=== PATIENT | male | born 1980 | race Caucasian/White ===

== ENCOUNTER 2019-08-29 16:22 | Emergency (ER) | payer OTHER ==
[2019-08-29 16:30] VITALS: BP 118/79; PULSE 85; TEMP 98.6; BMI 29.0
--- NOTE | 2019-08-29 17:10 | PDOC ---
History of Present Illness - General Chief Complaint: Injury Stated Complaint: LT HAND INJURY Time Seen by Provider: 08/29/19 16:29 - History of Present Illness Initial Comments: 08/29/19 17:08 39-year-old male without comorbidities current on tetanus presents for evaluation of a laceration on his left hand which occurred while using a knife at home. Past History - Past Medical History Allergies/Adverse Reactions: Allergies Allergy/AdvReac Type Severity Reaction Status Date / Time aspirin Allergy Verified 08/29/19 16:27 COPD: No - Immunization History Immunization Up to Date: No - Psycho Social/Smoking Cessation Hx Smoking History: Never smoked Have you smoked in the past 12 months: No Information on smoking cessation initiated: No Hx Alcohol Use: No Drug/Substance Use Hx: No Review of Systems - Review of Systems Musculoskeletal: Yes: See HPI *Physical Exam - Vital Signs Last Vital Signs Temp Pulse Resp BP Pulse Ox 98.6 F 85 18 118/79 99 08/29/19 16:28 08/29/19 16:28 08/29/19 16:28 08/29/19 16:28 08/29/19 16:28 - Physical Exam 08/29/19 17:08 There is a 1 cm laceration on the radial aspect of the second MTPJ without exposed tendon. There is subcutaneous fat exposed no gross sensorimotor deficits neurovascular intact Medical Decision Making - Medical Decision Making 08/29/19 17:08 The wound was anesthetized with 1% lidocaine without epinephrine. Explored to its base in a bloodless field without any identification of foreign body. Copiously irrigated with normal saline. Edges approximated using 4 3-0 nylon sutures . Dry sterile dressing was placed. Discharge - Discharge Information Problems reviewed: Yes Clinical Impression/Diagnosis: Laceration Condition: Stable Disposition: HOME - Admission No - Follow up/Referral Referrals: Franco Zhou MD [Primary Care Provider] - Anuel Bloom MD [Staff Physician] - - Patient Discharge Instructions Additional Instructions: Please keep the dressing on for the next 48 hours. After 48 hours you may remove the dressing wash the area with soap and water and leave it open to air. If you must work please cover the area with a dry sterile dressing such as a large Band-Aid. Keep the area open to air as much as possible. Return to the emergency room for any worsening symptoms or concern for infection such as redness, swelling, increasing pain, or drainage. Other than that sutures out in 10 days Tylenol and Motrin as directed for pain. Without fail follow-up with hand surgery 2 to 3 days for further evaluation and treatment options - Post Discharge Activity
== END 2019-08-29 17:15 | disposition home or self-care (01) ==
LOC: JERFT 16:22
PROC: 0JQK0ZZ Repair Left Hand Subcutaneous Tissue and Fascia, Open Approach (ICD-10-PCS; principal; 2019-08-29)
DX: S61.412A Laceration without foreign body of left hand, initial encounter (principal); W26.0XXA Contact with knife, initial encounter; Y93.G9 Activity, other involving cooking and grilling; Y92.030 Kitchen in apartment as the place of occurrence of the external cause; Y99.8 Other external cause status; Z88.6 Allergy status to analgesic agent
CPT/HCPCS: 12001-25; 99281-25

== ENCOUNTER 2019-09-07 18:05 | Emergency (ER) | payer OTHER ==
[2019-09-07 18:12] VITALS: BP 115/66; PULSE 80; TEMP 98; BMI 26.3
--- NOTE | 2019-09-07 18:17 | PDOC ---
Suture Removal/Wound Check HPI - History of Present Illness Chief Complaint: Suture/Staple Removal(Here) Stated Complaint: STITCHES REMOVAL Time Seen by Provider: 09/07/19 18:09 History Source: Yes: Patient Exam Limitations: Yes: No Limitations Treated at: [facility] Date of Last ED visit: 08/29/19 - Previous ED Treatment Type of procedure performed on last visit: Yes: Laceration Repair Tetanus Immunization: Yes: Up to Date Antibiotics Prescribed: No Past History - Travel Traveled outside of the country in the last 30 days: No Close contact w/someone who was outside of country & ill: No - Past Medical History Allergies/Adverse Reactions: Allergies Allergy/AdvReac Type Severity Reaction Status Date / Time aspirin Allergy Verified 09/07/19 18:10 Home Medications: Ambulatory Orders NK [No Known Home Medication] 08/29/19 COPD: No - Immunization History Immunization Up to Date: No - Psycho Social/Smoking Cessation Hx Smoking History: Never smoked Have you smoked in the past 12 months: No Hx Alcohol Use: No Drug/Substance Use Hx: No Suture Removal/Wound Check PE - Physical Exam Laceration/Wound Check Symptoms: denies: Pain, Fever, Redness, Discharge Current Severity Level: None *Review of Systems - Review of Systems Able to Perform ROS?: Yes Constitutional: No: Chills, Fever Integumentary: No: Symptoms Reported *Physical Exam - Vital Signs Last Vital Signs Temp Pulse Resp BP Pulse Ox 98.0 F 80 18 115/66 100 09/07/19 18:10 09/07/19 18:10 09/07/19 18:10 09/07/19 18:10 09/07/19 18:10 Medical Decision Making - Medical Decision Making 09/07/19 18:16 4 sutures removed Abx ointment and dressing applied Discharge - Discharge Information Problems reviewed: Yes Clinical Impression/Diagnosis: Visit for suture removal - Admission No - Follow up/Referral - Patient Discharge Instructions Patient Printed Discharge Instructions: DI for Suture Removal Additional Instructions: Keep clean and dry Remove here for any new or concerning symptoms - Post Discharge Activity
== END 2019-09-07 18:41 | disposition home or self-care (01) ==
LOC: JER 18:05 → JERFT 18:05
DX: Z48.817 Encounter for surgical aftercare following surgery on the skin and subcutaneous tissue (principal); Z48.02 Encounter for removal of sutures
CPT/HCPCS: 99281-25